=== PATIENT | female | born 1950 | race Caucasian/White ===

== ENCOUNTER 2023-09-21 04:22 | Day surgery (SDC) | payer OTHER ==
[2023-09-19 11:03] VITALS: BMI 29.5
[2023-09-21 12:33] VITALS: TEMP 98.4
[2023-09-21 13:01] VITALS: BP 129/70; PULSE 72; RESP 12
== END 2023-09-21 14:16 | disposition home or self-care (01) ==
LOC: JASU-ENDO 04:22
PROVIDERS: ATTEND Internal Medicine Gastroenterology
PROC: 0DB78ZX Excision of Stomach, Pylorus, Via Natural or Artificial Opening Endoscopic, Diagnostic (ICD-10-PCS; 2023-09-21)
PROC: 0DB68ZX Excision of Stomach, Via Natural or Artificial Opening Endoscopic, Diagnostic (ICD-10-PCS; principal; 2023-09-21 12:00)
DX: K29.50 Unspecified chronic gastritis without bleeding (principal); B96.81 Helicobacter pylori [H. pylori] as the cause of diseases classified elsewhere
CPT/HCPCS: 88305-TC; 88342-TC

== ENCOUNTER 2024-07-24 05:00 | Day surgery (SDC) | payer OTHER ==
[2024-07-22 14:04] VITALS: BMI 27.4
[2024-07-24] MEDS ORDERED: ACETAMINOPHEN 325 MG TABLET (FP) ONE (12:09)
[2024-07-24] MEDS: ACETAMINOPHEN 325 MG TABLET (FP) PO ONE (12:10)
[2024-07-24 12:19] VITALS: RESP 18
[2024-07-24 13:26] VITALS: BP 146/76; PULSE 77; TEMP 97.7
== END 2024-07-24 13:29 | disposition home or self-care (01) ==
LOC: JRADIR 05:00
PROVIDERS: ATTEND Internal Medicine Hematology & Oncology
PROC: 0QB23ZX Excision of Right Pelvic Bone, Percutaneous Approach, Diagnostic (ICD-10-PCS; principal; 2024-07-24)
DX: C50.919 Malignant neoplasm of unspecified site of unspecified female breast (principal); C79.51 Secondary malignant neoplasm of bone
CPT/HCPCS: 20225; 77012-TC; 88307-TC; 88311-TC; 88341-TC; 88342-TC